=== PATIENT | female | born 1995 | race Caucasian/White ===

== ENCOUNTER 2017-04-15 01:44 | Emergency (ER) | payer OTHER ==
[2017-04-15] MEDS ORDERED: Ibuprofen TAB* 400 MG PO ONE (03:31)
[2017-04-15 03:50] VITALS: BP 137/90
--- NOTE | 2017-04-15 03:59 | ED ---
Tony Stoner Julia, scribed for Fernando Xie MD on 04/15/17 at 0334 . Skin Complaint - HPI Summary HPI Summary: This patient is a 21 year old F presenting to [facility] with a chief complaint of lower lip and chin laceration secondary to slip and fall at 1:15. Pt rate pain 4/10 in severity. She reports she hit her head.She states she attempted a karate kick when she fell on the ice. Pt denies dental trauma, abdominal pain, or LOC. - History of Current Complaint Chief Complaint: EDLacSutureRecheck Time Seen by Provider: 04/15/17 03:07 Stated Complaint: LIP LAC Hx Obtained From: Patient Onset/Duration: Started Days Ago Skin Exposure Onset/Duration: Hours Ago Timing: Constant Pain Intensity: 4 Pain Scale Used: 0-10 Numeric Skin Location: Other: - lower lip and chin - Allergy/Home Medications Allergies/Adverse Reactions: Allergies Allergy/AdvReac Type Severity Reaction Status Date / Time No Known Allergies Allergy Verified 04/15/17 01:50 PMH/Surg Hx/FS Hx/Imm Hx Musculoskeletal History: Denies: Hx Arthritis Sensory History: Denies: Hx Legally Blind, Hx Deafness EENT History: Denies: Hx Deafness - Immunization History Date of Influenza Vaccine: This flu season Infectious Disease History: No Infectious Disease History: Denies: Traveled Outside the [place] in Last 30 Days - Family History Known Family History: Positive: Diabetes - Social History Alcohol Use: Occasionally Alcohol Amount: Admits to ETOH tonight Substance Use Type: Reports: None Smoking Status (MU): Never Smoked Tobacco Review of Systems ENT: Negative Negative: Abdominal Pain Positive: Other - laceration to chin and lower lip Neurological: Negative All Other Systems Reviewed And Are Negative: Yes Physical Exam - Summary Physical Exam Summary: Appearance: Well appearing, no pain distress Skin: warm, dry, reflects adequate perfusion Head/face: no hematoma of scalp, abrasion to chin, 1.5cm laceration to lingual surface of left lower Eyes: EOMI, JAMES ENT: lower teeth in place Neck: supple, non-tender Respiratory: CTA, breath sounds present Cardiovascular: RRR, pulses symmetrical Abdomen: non-tender, soft Bowel: present Musculoskeletal: normal, strength/ROM intact Neuro: normal, sensory motor intact, A&Ox3 Triage Information Reviewed: Yes Vital Signs On Initial Exam: Initial Vitals Temp Pulse Resp BP Pulse Ox 97.7 F 86 16 139/97 98 04/15/17 01:45 04/15/17 01:45 04/15/17 01:45 04/15/17 01:45 04/15/17 01:45 Vital Signs Reviewed: Yes Diagnostics - Vital Signs Vital Signs Temp Pulse Resp BP Pulse Ox 04/15/17 01:45 97.7 F 86 16 139/97 98 - Laboratory Lab Statement: Any lab studies that have been ordered have been reviewed, and results considered in the medical decision making process. Course/Dx - Course Course Of Treatment: Pt presents with ower lip and chin laceration secondary to slip and fall at 1:15. She reports she hit her head. Pt denies dental trauma, abdominal or head pain, and LOC. I instructed her to keep the lip laceration moist and to use bacitracin. Lingual surface will not require repair. Outer surface not lacerated. Nl occlusion. No concussive sx. Non- intoxicated. Td up to date. - Diagnoses Provider Diagnoses: Lip laceration, Closed head injury without loss of consciousness, Facial abrasion Discharge - Discharge Plan Condition: Good Disposition: HOME Patient Education Materials: Head Injury (ED), Abrasion (ED) Forms: *School Release Referrals: [facility] - Alfonso HAMLIN [Primary Care Provider] - Additional Instructions: Keep wound moist with bacitracin ointment. Salt water rinse/gargles. Return with concern for infection, persistent vomiting, severe headaches, worse or other concerns. The documentation as recorded by the Tony colby Julia accurately reflects the service I personally performed and the decisions made by me, Fernando Xie MD.
== END 2017-04-15 03:49 | disposition home or self-care (01) ==
LOC: ED 01:44
DX: S01.511A Laceration without foreign body of lip, initial encounter (principal); S09.90XA Unspecified injury of head, initial encounter; S00.81XA Abrasion of other part of head, initial encounter; W00.0XXA Fall on same level due to ice and snow, initial encounter; Y93.75 Activity, martial arts; Y92.9 Unspecified place or not applicable
CPT/HCPCS: 99282; A9270-GY